=== PATIENT | female | born 1985 | race Caucasian/White ===

== ENCOUNTER 2019-02-22 12:46 | Emergency (ER) | payer OTHER ==
[~2019-02-22] VITALS: Ht 167.6 cm; Wt 53.1 kg
[~2019-02-22 12:46] MED LIST: ALEVE220 MG PO; CIPRO250 M1 PO; IBUPROFEN 600600 M1 PO; IBUPROFEN 800800 M1 PO; KEFLEX500 M1 PO; KEFLEX500 MG PO; MEDROL DOSPAK21 TAB PO; MULTI VITAMIN1 EACH PO; NAPROSYN500 MG PO; NORCO 5-325 TA1 EACH PO; NORFLEX100 MG PO; PRENATAL TABLE1 EAC3 PO; TYLENOL325 MG PO; VITAMIN B-12500 MCG PO; VITAMINC500 PO; ZPAK PO
[2019-02-22 13:24] LABS: URINE BLOOD TRACE (Negative); URINE CLARITY CLEAR; URINE COLOR YELLOW; URINE GLUCOSE-RANDOM* NEGATIVE (Negative); URINE KETONES NEGATIVE (Negative); URINE LEUKOCYTES-REFLEX NEGATIVE (Negative); URINE NITRITE-REFLEX NEGATIVE (Negative); URINE PROTEIN (DIPSTICK) TRACE (Negative); URINE SPECIFIC GRAVITY >= 1.030 (1.005-1.035); URINE UROBILINOGEN 0.2 E.U./dl (0.2-1.0)
[2019-02-22] MEDS ORDERED: NAPROSYN500 MG PO (13:25)
[2019-02-22] MEDS ORDERED: ROBAXIN 750 MG750 MG PO (13:25)
[2019-02-22 13:26] LABS: ICTOTEST (BILI CONFIRMATORY) Negative (Negative); URINE BILIRUBIN NEGATIVE (Negative)
[2019-02-22 14:10] VITALS: BP 119/77
== END 2019-02-22 14:10 | disposition home or self-care (01) ==
LOC: ER 12:46
PROVIDERS: Emergency Medicine
DX: S39.012A Strain of muscle, fascia and tendon of lower back, initial encounter (principal); F17.210 Nicotine dependence, cigarettes, uncomplicated; X50.0XXA Overexertion from strenuous movement or load, initial encounter; Y92.89 Other specified places as the place of occurrence of the external cause; Y93.89 Activity, other specified; Y99.8 Other external cause status

== ENCOUNTER 2019-04-07 13:41 | Emergency (ER) | payer OTHER ==
[~2019-04-07] VITALS: Ht 167.6 cm; Wt 59.0 kg
[~2019-04-07 13:41] MED LIST changes: +ROBAXIN 750 MG750 MG PO
[2019-04-07] MEDS ORDERED: NORCO 5-325 TA1 EAC1 PO (15:34)
[2019-04-07] MEDS ORDERED: ROBAXIN 750 MG750 MG PO (15:34)
[2019-04-07 15:45] VITALS: BP 108/58
== END 2019-04-07 16:17 | disposition home or self-care (01) ==
LOC: ER 13:41
DX: S00.93XA Contusion of unspecified part of head, initial encounter (principal); S60.512A Abrasion of left hand, initial encounter; S60.511A Abrasion of right hand, initial encounter; F17.210 Nicotine dependence, cigarettes, uncomplicated; V87.8XXA Person injured in other specified noncollision transport accidents involving motor vehicle (traffic), initial encounter; Y93.89 Activity, other specified; Y92.89 Other specified places as the place of occurrence of the external cause; Y99.8 Other external cause status

== ENCOUNTER 2021-04-08 11:39 | Emergency (ER) | payer OTHER ==
[~2021-04-08] VITALS: Ht 167.6 cm; Wt 56.7 kg
[~2021-04-08 11:39] MED LIST changes: +NORCO 5-325 TA1 EAC1 PO
[2021-04-08 11:45] VITALS: BP 116/74
[2021-04-08] MEDS ORDERED: HYDROCODON-ACE1 EAC7 PO (12:42)
== END 2021-04-08 13:30 | disposition home or self-care (01) ==
LOC: ER 11:39
DX: S99.911A Unspecified injury of right ankle, initial encounter (principal); F17.210 Nicotine dependence, cigarettes, uncomplicated; Z79.891 Long term (current) use of opiate analgesic; Z79.1 Long term (current) use of non-steroidal anti-inflammatories (NSAID); Z79.899 Other long term (current) drug therapy; X58.XXXA Exposure to other specified factors, initial encounter; Y93.89 Activity, other specified; Y92.89 Other specified places as the place of occurrence of the external cause; Y99.8 Other external cause status